=== PATIENT | female | born 1945 | race Caucasian/White ===

== ENCOUNTER 2021-02-26 06:40 | Day surgery (SDC) | payer MEDICARE, BC ==
[~2021-02-26] VITALS: Ht 157.5 cm; Wt 66.1 kg
[~2021-02-26 06:40] MED LIST: BIEST; PROGESTRONE
--- NOTE | 2021-02-26 07:39 | NUR ---
02/26/21 0739 Hellen Fiore CALL LIGHT WITHIN REACH.
== END 2021-02-26 09:10 | disposition home or self-care (01) ==
LOC: ORSCSDS 06:40
PROVIDERS: Ophthalmology
PROC: 080P0ZZ Alteration of Left Upper Eyelid, Open Approach (ICD-10-PCS; principal; 2021-02-26 08:15)
PROC: 080N0ZZ Alteration of Right Upper Eyelid, Open Approach (ICD-10-PCS; principal; 2021-02-26 08:15)
DX: H02.831 Dermatochalasis of right upper eyelid (principal); H02.834 Dermatochalasis of left upper eyelid; I10 Essential (primary) hypertension; Z87.891 Personal history of nicotine dependence; Z79.899 Other long term (current) drug therapy
CPT/HCPCS: A9270; J2250; J2704; J3010; J7040